=== PATIENT | female | born 1955 | race Caucasian/White ===

== ENCOUNTER 2019-08-04 18:47 | Emergency (ER) | payer OTHER, SELFPAY ==
--- NOTE | ~2019-08-04 | XR_ITS ---
EXAMINATION: XR abdomen/kub 1V DATE: 08/04/2019 19:22 INDICATION: Right lower quadrant abdominal pain. Hematuria. TECHNIQUE: A supine view of the abdomen on 2 radiographs was obtained. COMPARISON: None. FINDINGS: There are no dilated loops of bowel. Surgical clips in the right upper quadrant are likely from cholecystectomy. A calcification in right pelvis is likely a phlebolith. IMPRESSION: 1. No etiology for the patient's symptoms. Reviewed, dictated and finalized at location A.
[2019-08-04 18:56] VITALS: BP 156/85; PULSE 65; RESP 20; TEMP 36.4; O2SAT 99
--- NOTE | 2019-08-04 18:57 | ED.GENADULT ---
HPI - General Adult General Chief complaint: Abdominal Pain Stated complaint: blood in urine nausea Time Seen by Provider: 08/04/19 18:57 Source: patient Mode of arrival: ambulatory Limitations: no limitations History of Present Illness HPI narrative: 63-year-old female patient presents to the [facility] with complaints right lower abdominal pain and frequency in urination since yesterday. Patient states she is felt very nauseated. Patient states she is very uncomfortable. Patient denies any burning urination but states she is just been peeing frequently. Patient also has noticed blood in her urine. Denies any fevers, vomiting or diarrhea. Patient states she is never had a urinary tract infection before in the past. Patient denies any history of kidney stones before in the past. Related Data Home Medications Medication Instructions Recorded Confirmed Flonase Allergy Relief 08/04/19 fluvoxamine mg 08/04/19 phentermine mg 08/04/19 topiramate [Trokendi XR] PO 08/04/19 Allergies Allergy/AdvReac Type Severity Reaction Status Date / Time Penicillins Allergy Rash Verified 08/04/19 19:09 Sulfa (Sulfonamide Allergy Rash Verified 08/04/19 19:09 Antibiotics) Review of Systems Review of Systems: Narrative: CONSTITUTIONAL: Denies fever, chills, or sweats. EYES: Denies visual changes, redness, or discharge. ENT: Denies rhinorrhea, congestion, sore throat, or otalgia. CARDIOVASCULAR: Denies chest pain, palpitations, or edema. RESPIRATORY: Denies cough or dyspnea. GASTROINTESTINAL: Positive abdominal pain, nausea, denies vomiting, or diarrhea. GENITOURINARY: Denies dysuria or hematuria. Positive frequency in urination SKIN: Denies rash or itching. MUSCULOSKELETAL: Denies back pain, joint pain, or myalgia. NEUROLOGIC: Denies headache, numbness, or weakness. PSYCHIATRIC: Denies anxiety or depression. [facility] Past Medical History Medical History (Updated 08/04/19 @ 19:33 by NIOCLE Starr) Cholecystitis, unspecified GERD (gastroesophageal reflux disease) Surgical History Surgical History (Updated 08/04/19 @ 18:58 by NICOLE Starr) H/O: hysterectomy Social History Social History Gender identity (if verbalized by the patient): Female Comments At the time of my signature I agree with nursing past medical history, surgical, social, and family history. There is no relevant family history pertinent to the presenting complaint. Exam Narrative: Exam Narrative: GENERAL: Well-appearing, well-nourished, and in no acute distress. HEAD: Normocephalic, atraumatic. EYES: PERRLA and EOMI. ENT: Nares clear, no rhinorrhea or epistaxis. Mucous membranes moist. NECK: Supple. No lymphadenopathy CHEST: Clear to auscultation. No respiratory distress. HEART: Regular rate and rhythm. No murmur heard. Normal peripheral pulses. ABDOMEN: Soft, flat, nondistended. No guarding, rebound tenderness, or rigid. No pulsatilla masses. Patient has slight tenderness noted to the right lower quadrant and suprapubic area. Bowel sounds present in all four quadrants. No organomegaly. Negative Jesus?s sign. No periumbicial tenderness. No Supra public tenderness or distension. Good femoral pulses bilaterally. No hernia noted. No scars or surface trauma. No CVA tenderness on percussion. EXTREMITIES: Normal range of motion. No edema. SKIN: Warm, dry, no rash. NEURO: No focal deficits. Alert and oriented x3. Course Reevaluation(s) Reevaluation #1: Reevaluated patient after her KUB had resulted. Notified her that there is no obvious evidence of a kidney stone in the KUB however as I had discussed with her before this does not mean she does not have a kidney stone it just needs an acute be seen on the KUB. Discussed with her that the best way to tell if there is a kidney stone is a CT scan. Discussed with her that given her symptoms and the fact that she has urinary frequency, nausea, blood in the urine, as well as specific tendern
== END 2019-08-04 19:45 | disposition home or self-care (01) ==
PROVIDERS: Emergency Provider Nurse Practitioner Family; PCP Internal Medicine Infectious Disease
DX: N30.01 Acute cystitis with hematuria (principal); R10.31 Right lower quadrant pain
CPT/HCPCS: 74018; 81003; 87086; 87088; 99203; G0463